=== PATIENT | female | born 1945 | race Caucasian/White ===

== ENCOUNTER 2023-05-08 07:56 | Emergency (ER) | payer OTHER, MEDICARE ==
[~2023-05-08] VITALS: Ht 170.2 cm; Wt 88.9 kg
[~2023-05-08 07:56] MED LIST: PRO40 PO
[2023-05-08 08:10] VITALS: BP_SYST 143; PULSE 70; RESP 18; TEMP 97.7; O2SAT 99
[2023-05-08] MEDS ORDERED: ACETAMINOPHEN 500 MG TABLET PO ONE (08:45)
[2023-05-08 10:24] VITALS: BP_SYST 112; PULSE 84; RESP 18; TEMP 97.7; O2SAT 99
== END 2023-05-08 10:24 | disposition home or self-care (01) ==
LOC: SED 07:56
DX: S13.4XXA Sprain of ligaments of cervical spine, initial encounter (principal); S00.83XA Contusion of other part of head, initial encounter; Z79.899 Other long term (current) drug therapy; W18.40XA Slipping, tripping and stumbling without falling, unspecified, initial encounter; Y93.89 Activity, other specified; Y92.89 Other specified places as the place of occurrence of the external cause; Y99.8 Other external cause status
CPT/HCPCS: 70450-TC; 70486-TC; 76376; 99284